=== PATIENT | female | born 1995 | race Caucasian/White ===

== ENCOUNTER 2016-12-17 00:26 | Emergency (ER) | payer MEDICAID ==
[~2016-12-17] VITALS: Ht 167.6 cm; Wt 72.6 kg
[2016-12-17 00:39] VITALS: BP 119/76
[2016-12-17 01:15] LABS: Urine Bilirubin Negative (Negative); Urine Blood Negative /uL (Negative); Urine Color Straw (Yellow); Urine Glucose Normal (Normal); Urine Ketone Negative (Negative); Urine Nitrite Negative (Negative); Urine RBC <1 /hpf (0 - 4); Urine Squamous Epithelial Cell FEW /hpf (<5); Urine Urobilinogen Normal (Negative)
== END 2016-12-17 03:18 | disposition left against medical advice (07) ==
LOC: ER 00:26
DX: R25.1 Tremor, unspecified (principal); Z53.21 Procedure and treatment not carried out due to patient leaving prior to being seen by health care provider
CPT/HCPCS: 81001; 81025